=== PATIENT | female | born 1995 ===

== ENCOUNTER 2023-11-21 08:07 | Inpatient (IN) ==
[2023-11-21] MEDS ORDERED: LIDOCAINE 1% LOCAL 20 ML VIAL INFIL PRN (08:33)
[2023-11-21] MEDS ORDERED: CALCIUM CARBONATE 500 MG CHEWABLE TAB PO PRN (08:33)
[2023-11-21] MEDS ORDERED: OXYTOCIN 30 UNITS/NSS 30 UNITS/500 ML BAG IV PRN ×2 (08:33→21:05)
[2023-11-21] MEDS ORDERED: ACETAMINOPHEN 325 MG TAB PO PRN ×2 (08:33→21:05)
--- NOTE | 2023-11-21 08:37 | History & Physical Report ---
Date of Service November 21, 2023 Assessment & Plan (1) Encounter for induction of labor: Plan: 28yo at 40w4d Morris bulb: placed Pitocin started Pain control, IV fluids AROM when indicated Monitor tracing: category I (2) GBS bacteriuria: Plan: discovered by urine culture on 08/28/23 Treating with penicillin: 6mu IV given, then 3mu IV q4h Has not had any signs indicating infection Monitor for signs of infection (3) Genital herpes: Plan: has been treating with daily Valtrex Admission and Anticipated Discharge Date Admission Date: November 21, 2023 History of Present Illness Chief Complaint: induction of labor Primary Care Provider: NO PCP Patient is a 28yo at 40w4d admitted for IOL. GBS+ on 08/28/23 Vital signs stable, BP mildly elevated, has not been measured >140/90 for duration of . Has been treating HSV2 with Valtrex daily, no active lesions. Otherwise her current has been uneventful, no pre-eclampsia. Previous : 11mos ago, notes pre-eclampsia which included significant swelling. was induced at 39w3d, 30+ hrs of labor but otherwise uneventful. No significant past medical or surgical history. Denies any recent fever, body aches, chills, headache, dizziness, n/v/d, SOB, chest pain, abdominal pain, vaginal bleeding, numbness/tingling, or p ain/swelling of lower extremities. RH+ Allergies Allergy/AdvReac Type Severity Reaction Status Date / Time No Known Allergies Allergy Verified 11/20/23 10:22 Home Medications Medication Instructions Recorded Confirmed Type [id number] PO 05/31/23 11/20/23 History [ Plus] escitalopram oxalate 20 mg tablet 20 mg PO DAILY #30 tabs 06/16/23 11/21/23 Rx (Lexapro) valacyclovir [Valtrex] 500 mg PO BID 11/02/23 11/21/23 History aspirin 81 mg chewable tablet 81 mg PO DAILY 11/21/23 11/21/23 History Patient History Medical History (Updated 11/21/23 @ 08:57 by Natalio Torres DO) Depression Genital herpes Varicella vaccination Pre-eclampsia Surgical History No pertinent past surgical history Family History Grandmother (Paternal) Colorectal cancer Aunt Colorectal cancer Mother Myocardial infarction Denies family history of Ovarian cancer Breast cancer Social History (Updated 11/21/23 @ 08:31 by Dee Dee Alvarez RN) Smoking Status: Never smoker Do You Dip or Chew Tobacco: No; Hx Alcohol Use: No Hx Substance Use: No Preferred Language: Faroese Communication Ability: Effective Cabinet Worker Required: No Beliefs That Will Affect Care: None marital status: marital status details: Jp Alvarado (29) [phone] Current Living Situation: Spouse and Family Current Living Situation Comment: , 3 children, 2 dogs current occupational status: unemployed current occupation: Homemaker Other Information That Helps Us Care for You: No Feels Safe at Home: Yes Safety Concerns: Feels Safe At This Time Diet: regular Assistive Devices: None Review of Systems per HPI Physical Exam Physical Exam: General: A&Ox4, resting comfortably NAD, nontoxic in appearance, answers questions appropriately Skin: warm, dry, intact HEENT: NC/AT, anicteric sclerae, conjunctiva w/o injection, moist mucous membranes Heart: +S1/S2, regular rate and rhythm, no m/r/g Lungs: equal air entry b/l, clear to auscultation b/l, no wheezes/rales/rhonchi Abd: gravid, +BS, nontender to palpation Cervical: 1/50/-2, mid, moderate; estimated weight 8-9lbs Ext: mild swelling, no erythema or tenderness; warm, no clubbing or cyanosis, no pitting edema Neuro: speech intact, no facial droop, moves all extremities on command and spontaneously : FHR baseline 150, moderate variability, accelerations present, decelerations present Results & Data Vital Signs (Past 12 Hours) Vital Signs Temp Pulse Resp BP 11/21/23 09:41 76 20 133/87 11/21/23 08:44 82 132/83 11/21/23 08:33 36.8 C 20 Intake and Output 11/20/23 11/21/23 11/21/23 22:59 06:59 14:59 Other: Weight 95.254 kg Weight Measurement Method Last Office Visit Patient Weight 11/22/23 06:59 Weight 95.254 kg Supervising Physician Co-Signing Physician Notes Resident Physician Supervision Note: I interviewed and examined the patient. Discussed with Dr. Munoz and agree with findings and plan as documented in the note. Any exceptions or clarifications are listed here: with iup at 40 4/7 for postdates induction. essentially uncomplicated. cx exam as noted by me. Verbal consent for morris bulb for cervical ripening. speculum placed, morris threaded through with ring, balloon with 30cc sterile water, tolerated well. Pitocin now. arom when balloon expelled, epidural on demand/. Fetus category one. rare contraction. anticipate . Documented By: Ira Loyd MD, FACOG Resident Activity Tracking Resident Involvement: Resident Care Provided Care Provided: OB Delivery (3) Genital herpes Herpes simplex infection site: unspecified Qualified Code(s): A60.00 - Herp esviral infection of urogenital system, unspecified
[2023-11-21 09:06] LABS: Hematocrit (blood only) 33.1 % (37.0-47.0); Hemoglobin 10.5 g/dl (12.0-16.0); Mean Corpuscular Hemoglobin 24.4 pg (25.0-34.0); Mean Corpuscular Hgb Conc 31.7 g/dL (32.0-36.0); Mean Corpuscular Volume 76.8 fL (80.0-100.0); Mean Platelet Volume 10.2 fL (9.4-12.4); Platelet Count 249 K/uL (130-400); RDW Coefficient of Variation 18.2 % (11.5-14.5); RDW Standard Deviation 50.2 fL (36.4-46.3); Red Blood Count 4.31 M/uL (4.20-5.40); White Blood Count 8.99 K/ul (4.8-10.8)
[2023-11-21] MEDS: OXYTOCIN 30 UNITS/NSS 30 UNITS/500 ML BAG IV PRN (09:52)
[2023-11-21] MEDS: LACTATED RINGER'S 1,000 ML IV PRN (09:52)
[2023-11-21] MEDS: PENICILLIN GK 6 MU in DEXTROSE 5% 250 ML IV STA (10:20)
[2023-11-21] MEDS ORDERED: BUPIVACAINE 0.25% PF 30 ML VIAL EPI PRN (13:04)
[2023-11-21] MEDS ORDERED: NALOXONE HCL 0.4 MG/1 ML VIAL/CARP IV PRN (13:04)
[2023-11-21] MEDS ORDERED: ROPIVACAINE 0.5% PF 5 MG/ML 20 ML VIAL EPI PRN (13:04)
[2023-11-21] MEDS ORDERED: NALOXONE HCL 1 MG in SODIUM CHLORIDE 0.9% 1,000 ML IV PRN (13:04)
[2023-11-21] MEDS ORDERED: NALBUPHINE HCL INJ 10 MG/ML AMP IV PRN (13:04)
[2023-11-21] MEDS ORDERED: fentaNYL citrate PF 100 MCG/2 ML VIAL EPI PRN (13:04)
[2023-11-21] MEDS ORDERED: LIDOCAINE 2% MPF LOCAL 5 ML VIAL EPI PRN (13:04)
[2023-11-21] MEDS ORDERED: SODIUM CHLORIDE 0.9% PF INJ 10 ML VIAL EPI PRN (13:04)
[2023-11-21] MEDS ORDERED: ePHEDrine sulfate 50 MG/ML AMP IV PRN (13:04)
[2023-11-21] MEDS ORDERED: diphenhydrAMINE 50 MG/ML VIAL IV PRN (13:04)
--- NOTE | 2023-11-21 13:04 | Anesthesiology Consultation ---
Date of Service November 21, 2023 Assessment & Plan Chart Review Chart Review: Acceptable Risk for Labor Epidural Consults Requested none History Height/Weight Height: 5 ft 5 in Weight: 95.254 kg Allergies Allergy/AdvReac Type Severity Reaction Status Date / Time No Known Allergies Allergy Verified 11/20/23 10:22 Medications Home Medications Medication Instructions Recorded Confirmed Last Taken [id number] PO 05/31/23 11/20/23 11/20/23 [ Plus] escitalopram oxalate 20 mg tablet 20 mg PO DAILY #30 tabs 06/16/23 11/21/23 11/21/23 (Lexapro) valacyclovir [Valtrex] 500 mg PO BID 11/02/23 11/21/23 11/20/23 aspirin 81 mg chewable tablet 81 mg PO DAILY 11/21/23 11/21/23 11/20/23 Active Medications Generic Name Dose Route Start Last Admin Trade Name Freq PRN Reason Stop Dose Admin Oxytocin 30 units in 500 mls @ 5 mls/hr 11/21/23 08:33 11/21/23 11:59 Pitocin 30 Units/Nss IV 11/23/23 08:32 0.3 units/hr .Q24H PRN 5 mls/hr Labor Induction/Augmentation Titration Protocol 0.3 UNITS/HR Lactated Ringer's 1,000 mls @ 125 mls/hr 11/21/23 08:33 11/21/23 09:52 Lr IV 11/23/23 08:32 125 mls/hr .Q8H PRN Administration L&D Protocol Protocol Past Medical History Medical History (Updated 11/21/23 @ 08:57 by Natalio Torres DO) Depression Genital herpes Varicella vaccination Pre-eclampsia Past Family History Family History Grandmother (Paternal) Colorectal cancer Aunt Colorectal cancer Mother Myocardial infarction Denies family history of Ovarian cancer Breast cancer Past Surgical History Surgical History No pertinent past surgical history Social History Smoking Status: Never smoker Do You Dip or Chew Tobacco: No Hx Alcohol Use: No Hx Substance Use: No Physical Exam Vital Signs Last Vital Signs Temp 36.9 C 11/21/23 11:33 Pulse 78 11/21/23 12:34 Resp 20 11/21/23 11:33 BP 119/74 11/21/23 12:34 Testing Laboratory Results 11/21/23 08:36
[2023-11-21] MEDS: LIDOCAINE 2%/EPINEPHRINE 1:200,000 20 ML PF ONE (13:33)
[2023-11-21] MEDS: fentANYL 2 MCG/ML BUPIVacaine 0.125%-NSS 100ML BAG ONE (13:35)
[2023-11-21] MEDS: PENICILLIN GK 3 MU in DEXTROSE 5% 100 ML IV PRN (13:58)
--- NOTE | 2023-11-21 14:59 | Labor Progress Brief Note ---
Date of Service November 21, 2023 Subjective comfortable after epidural Assessment & Plan (1) Encounter for induction of labor: Plan Continue current management. fetus category one. Admission and Anticipated Discharge Date Admission Date: November 21, 2023 Physical Exam Physical Exam: cx--/-2 arom--thin mec, green toco--q2-3min efm--140s with mod varaibility, accels to 150s, no decels Results & Data Vital Signs (Past 12 Hours) Vital Signs Temp Pulse Resp BP Pulse Ox 11/21/23 14:53 84 98 11/21/23 14:48 89 98 11/21/23 14:43 93 H 99 11/21/23 14:42 81 127/73 11/21/23 14:38 84 98 11/21/23 14:33 78 98 11/21/23 14:28 77 97 11/21/23 14:27 80 20 114/59 L 11/21/23 14:23 79 98 11/21/23 14:18 80 98 11/21/23 14:13 82 98 11/21/23 14:11 83 117/59 L 11/21/23 14:08 81 98 11/21/23 14:03 85 98 11/21/23 13:58 83 98 11/21/23 13:55 89 119/70 11/21/23 13:53 84 98 11/21/23 13:51 86 126/71 11/21/23 13:48 85 99 11/21/23 13:45 82 110/59 L 11/21/23 13:43 87 113/59 L 99 11/21/23 13:41 93 H 18 116/63 11/21/23 13:39 90 113/62 11/21/23 13:38 89 99 11/21/23 13:37 86 115/58 L 11/21/23 13:35 89 18 123/58 L 11/21/23 13:33 99 11/21/23 13:33 90 11/21/23 13:33 90 116/56 L 11/21/23 13:31 87 130/60 11/21/23 13:29 95 H 136/76 11/21/23 13:28 95 H 100 11/21/23 13:27 86 133/81 11/21/23 12:34 78 20 119/74 11/21/23 11:34 77 122/75 11/21/23 11:33 36.9 C 20 11/21/23 09:41 76 20 133/87 11/21/23 08:44 82 132/83 11/21/23 08:33 36.8 C 20 Coding Level of Care Code None Diagnoses Encounter for induction of labor Z34.90
[2023-11-21] MEDS: ePHEDrine sulfate 50 MG/ML AMP ONE (15:29)
[2023-11-21] MEDS: SODIUM CHLORIDE 0.9% PF INJ 10 ML VIAL ONE (15:30)
[2023-11-21] MEDS: BUPIVACAINE 0.25% PF 30 ML VIAL EPI STA (15:30)
[2023-11-21] MEDS: fentaNYL citrate PF 100 MCG/2 ML VIAL ONE (15:30)
[2023-11-21] MEDS: BUPIVACAINE 0.25% PF 30 ML VIAL ONE (15:30)
[2023-11-21] MEDS: fentaNYL citrate PF 100 MCG/2 ML VIAL EPI STA (15:30)
[2023-11-21] MEDS: LIDOCAINE 2%/EPINEPHRINE 1:200,000 20 ML PF EPI STA (15:31)
[2023-11-21] MEDS: SODIUM CHLORIDE 0.9% PF INJ 10 ML VIAL EPI STA (15:31)
--- NOTE | 2023-11-21 19:29 | Labor Progress Brief Note ---
Date of Service November 21, 2023 Subjective comfortable Assessment & Plan (1) Encounter for induction of labor: Plan continue current plan, reassuring fetus. Admission and Anticipated Discharge Date Admission Date: November 21, 2023 Physical Exam Physical Exam: cx--5-6/100/0 toco--q2-3min, pit at 11 efm--130s wtih mod variability, early/variables with some contractions. Results & Data Vital Signs (Past 12 Hours) Vital Signs Temp Pulse Resp BP Pulse Ox 11/21/23 19:26 90 128/60 11/21/23 19:23 81 97 11/21/23 19:18 81 97 11/21/23 19:13 83 98 11/21/23 19:11 90 114/57 L 11/21/23 19:08 90 98 11/21/23 19:03 92 H 98 11/21/23 18:58 91 H 97 11/21/23 18:57 86 116/57 L 11/21/23 18:53 84 97 11/21/23 18:48 87 97 11/21/23 18:43 95 H 98 11/21/23 18:42 84 105/58 L 11/21/23 18:38 91 H 97 11/21/23 18:33 92 H 98 11/21/23 18:28 80 99 11/21/23 18:27 80 109/60 11/21/23 18:23 77 97 11/21/23 18:18 78 111/57 L 98 11/21/23 18:13 90 99 11/21/23 18:12 77 119/64 11/21/23 18:08 92 H 98 11/21/23 18:03 75 99 11/21/23 17:58 95 H 99 11/21/23 17:56 72 20 113/67 11/21/23 17:53 73 99 11/21/23 17:48 77 99 11/21/23 17:43 77 100 11/21/23 17:42 95 H 127/70 11/21/23 17:38 84 100 11/21/23 17:33 80 99 11/21/23 17:28 77 99 11/21/23 17:26 71 118/72 11/21/23 17:23 78 99 11/21/23 17:18 81 99 11/21/23 17:13 81 99 11/21/23 17:12 36.9 C 67 20 119/73 11/21/23 17:08 73 99 11/21/23 17:03 86 98 11/21/23 16:58 88 99 11/21/23 16:57 77 126/78 11/21/23 16:53 81 98 11/21/23 16:48 78 98 11/21/23 16:43 88 99 11/21/23 16:41 77 118/68 11/21/23 16:38 81 98 11/21/23 16:33 83 98 11/21/23 16:28 76 98 11/21/23 16:27 77 117/72 11/21/23 16:23 78 98 11/21/23 16:18 80 98 11/21/23 16:13 82 98 11/21/23 16:12 96 H 142/105 H 11/21/23 16:08 83 97 11/21/23 16:03 77 96 11/21/23 15:58 75 97 11/21/23 15:57 75 20 125/66 11/21/23 15:53 78 97 11/21/23 15:48 76 96 11/21/23 15:43 78 96 11/21/23 15:41 75 128/72 11/21/23 15:38 81 98 11/21/23 15:33 83 98 11/21/23 15:28 79 97 11/21/23 15:26 78 20 132/78 11/21/23 15:23 77 97 11/21/23 15:18 79 98 11/21/23 15:13 82 97 11/21/23 15:12 78 125/71 11/21/23 15:08 77 97 11/21/23 15:03 83 97 11/21/23 14:58 80 98 11/21/23 14:57 85 135/72 11/21/23 14:53 84 98 11/21/23 14:48 89 98 11/21/23 14:43 93 H 99 11/21/23 14:42 81 127/73 11/21/23 14:38 84 98 11/21/23 14:33 78 98 11/21/23 14:28 77 97 11/21/23 14:27 80 20 114/59 L 11/21/23 14:23 79 98 11/21/23 14:18 80 98 11/21/23 14:13 82 98 11/21/23 14:11 83 117/59 L 11/21/23 14:08 81 98 11/21/23 14:03 85 98 11/21/23 13:58 83 98 11/21/23 13:55 89 119/70 11/21/23 13:53 84 98 11/21/23 13:51 86 126/71 11/21/23 13:48 85 99 11/21/23 13:45 82 110/59 L 11/21/23 13:43 87 113/59 L 99 11/21/23 13:41 93 H 18 116/63 11/21/23 13:39 90 113/62 11/21/23 13:38 89 99 11/21/23 13:37 86 115/58 L 11/21/23 13:35 89 18 123/58 L 11/21/23 13:33 99 11/21/23 13:33 90 11/21/23 13:33 90 116/56 L 11/21/23 13:31 87 130/60 11/21/23 13:29 95 H 136/76 11/21/23 13:28 95 H 100 11/21/23 13:27 86 133/81 11/21/23 12:34 78 20 119/74 11/21/23 11:34 77 122/75 11/21/23 11:33 36.9 C 20 11/21/23 09:41 76 20 133/87 11/21/23 08:44 82 132/83 11/21/23 08:33 36.8 C 20 Coding Level of Care Code None Diagnoses Encounter for induction of labor Z34.90
[2023-11-21] MEDS: fentANYL 2 MCG/ML BUPIVacaine 0.125%-NSS 100ML BAG EPI PRN (20:01)
--- NOTE | 2023-11-21 20:52 | Delivery Summary ---
Vaginal Delivery Summary Date of Service November 21, 2023 Vaginal Delivery Summary and 1st Degree LAC (periclitoral, not perineum) Pre-operative Diagnosis: at 40 4/7 weeks iol Post-operative Diagnosis: same thin meconium Procedure: morris bulb for cervical ripening pitocin induction epidural arom periclitoral lac and repair EBL: 505cc Anesthesia: epidural Procedure: The patient presented to labor and delivery for postdates iol. Cervix not favorable and morris bulb placed. Pitocin started. She then underwent an epidural. Once comfortable, had arom for thin, green mec. Progressed with pitocin to c/c/+2. The patient pushed for 2 contractions to deliver a viable female in nash position. A loose nuchal cord x 1 reduced and the anterior shoulder then delivered. the rest of the baby followed easily. The nose and mouth were bulb suctioned and the infant was placed in the maternal abdomen for drying and attention. Cord was clamped and cut. Cord blood and segment obtained. Placenta delivered spontaneous, intact with a three vessel cord. Cervix/sulci/rectum were intact. A periclitoral laceration was repaired in the normal standard fashion. Hemostasis obtained with dilute pitocin and fundal massage. Apgars were 7/8. Mother and baby doing well at the end of the delivery. [facility] Vaginal Delivery Charge Delivery Type Details: and 1st Degree LAC (periclitoral, not perineum)
[2023-11-21] MEDS ORDERED: bisacodyL 10 MG SUPP PR PRN (21:05)
[2023-11-21] MEDS ORDERED: HYDROCORTISONE ACETATE 25 MG SUPP PR PRN (21:05)
[2023-11-21] MEDS ORDERED: oxyCODONE/ACETAMINOPHEN 5mg/325mg TAB PO PRN (21:05)
[2023-11-21] MEDS: METHYLERGONOVINE MALEATE 0.2 MG/ML AMP IM ONE (21:30)
[2023-11-21] MEDS: DIPHTHER/TETAN/PERTUS Vaccine (Tdap, Adol/Adult) 0.5mL IM ONE (21:31)
[2023-11-21] MEDS: DOCUSATE SODIUM 100 MG CAP PO SCH (21:32)
--- NOTE | 2023-11-21 22:52 | Anesthesiology Progress Note ---
Date of Service November 21, 2023 Anesthesia Post Procedure Vital Signs Vital Signs: Temp Pulse Resp BP Pulse Ox 11/21/23 22:10 36.5 C 18 11/21/23 21:56 68 127/84 11/21/23 21:41 78 126/86 11/21/23 21:40 36.5 C 18 11/21/23 21:26 72 132/87 11/21/23 21:25 36.5 C 18 11/21/23 21:23 74 99 11/21/23 21:18 75 99 11/21/23 21:13 72 97 11/21/23 21:11 73 120/82 11/21/23 21:10 36.5 C 18 11/21/23 21:08 72 99 11/21/23 21:03 80 99 11/21/23 20:58 78 99 11/21/23 20:56 76 119/73 11/21/23 20:55 36.5 C 18 11/21/23 20:53 74 99 11/21/23 20:48 82 99 11/21/23 20:43 84 99 11/21/23 20:41 113/62 11/21/23 20:40 36.5 C 18 11/21/23 20:38 86 98 11/21/23 20:37 86 119/62 11/21/23 20:33 88 98 11/21/23 20:28 85 99 11/21/23 20:26 107/72 11/21/23 20:25 106 H 86 L 11/21/23 20:23 96 H 100 11/21/23 20:18 91 H 99 11/21/23 20:13 91 H 99 11/21/23 20:11 77 116/59 L 11/21/23 20:08 70 99 11/21/23 20:03 78 99 11/21/23 19:58 72 99 11/21/23 19:56 75 116/58 L 11/21/23 19:53 84 98 11/21/23 19:48 79 97 11/21/23 19:43 80 98 11/21/23 19:41 78 134/66 11/21/23 19:38 82 98 11/21/23 19:33 85 97 11/21/23 19:28 83 98 11/21/23 19:26 90 128/60 11/21/23 19:23 81 97 11/21/23 19:18 81 97 11/21/23 19:13 83 98 11/21/23 19:11 90 114/57 L 11/21/23 19:10 36.6 C 16 11/21/23 19:08 90 98 11/21/23 19:03 92 H 98 11/21/23 18:58 91 H 97 11/21/23 18:57 86 116/57 L 11/21/23 18:53 84 97 11/21/23 18:48 87 97 11/21/23 18:43 95 H 98 11/21/23 18:42 84 105/58 L 11/21/23 18:38 91 H 97 11/21/23 18:33 92 H 98 11/21/23 18:28 80 99 11/21/23 18:27 80 109/60 11/21/23 18:23 77 97 11/21/23 18:18 78 111/57 L 98 11/21/23 18:13 90 99 11/21/23 18:12 77 119/64 11/21/23 18:08 92 H 98 11/21/23 18:03 75 99 11/21/23 17:58 95 H 99 11/21/23 17:56 72 20 113/67 11/21/23 17:53 73 99 11/21/23 17:48 77 99 11/21/23 17:43 77 100 11/21/23 17:42 95 H 127/70 11/21/23 17:38 84 100 11/21/23 17:33 80 99 11/21/23 17:28 77 99 11/21/23 17:26 71 118/72 11/21/23 17:23 78 99 11/21/23 17:18 81 99 11/21/23 17:13 81 99 11/21/23 17:12 36.9 C 67 20 119/73 11/21/23 17:08 73 99 11/21/23 17:03 86 98 11/21/23 16:58 88 99 11/21/23 16:57 77 126/78 11/21/23 16:53 81 98 11/21/23 16:48 78 98 11/21/23 16:43 88 99 11/21/23 16:41 77 118/68 11/21/23 16:38 81 98 11/21/23 16:33 83 98 11/21/23 16:28 76 98 11/21/23 16:27 77 117/72 11/21/23 16:23 78 98 11/21/23 16:18 80 98 11/21/23 16:13 82 98 11/21/23 16:12 96 H 142/105 H 11/21/23 16:08 83 97 11/21/23 16:03 77 96 11/21/23 15:58 75 97 11/21/23 15:57 75 20 125/66 11/21/23 15:53 78 97 11/21/23 15:48 76 96 11/21/23 15:43 78 96 11/21/23 15:41 75 128/72 11/21/23 15:38 81 98 11/21/23 15:33 83 98 11/21/23 15:28 79 97 11/21/23 15:26 78 20 132/78 11/21/23 15:23 77 97 11/21/23 15:18 79 98 11/21/23 15:13 82 97 11/21/23 15:12 78 125/71 11/21/23 15:08 77 97 11/21/23 15:03 83 97 11/21/23 14:58 80 98 11/21/23 14:57 85 135/72 11/21/23 14:53 84 98 11/21/23 14:48 89 98 11/21/23 14:43 93 H 99 11/21/23 14:42 81 127/73 11/21/23 14:38 84 98 11/21/23 14:33 78 98 11/21/23 14:28 77 97 11/21/23 14:27 80 20 114/59 L 11/21/23 14:23 79 98 11/21/23 14:18 80 98 11/21/23 14:13 82 98 11/21/23 14:11 83 117/59 L 11/21/23 14:08 81 98 11/21/23 14:03 85 98 11/21/23 13:58 83 98 11/21/23 13:55 89 119/70 11/21/23 13:53 84 98 11/21/23 13:51 86 126/71 11/21/23 13:48 85 99 11/21/23 13:45 82 110/59 L 11/21/23 13:43 87 113/59 L 99 11/21/23 13:41 93 H 18 116/63 11/21/23 13:39 90 113/62 11/21/23 13:38 89 99 11/21/23 13:37 86 115/58 L 11/21/23 13:35 89 18 123/58 L 11/21/23 13:33 99 11/21/23 13:33 90 11/21/23 13:33 90 116/56 L 11/21/23 13:31 87 130/60 11/21/23 13:29 95 H 136/76 11/21/23 13:28 95 H 100 11/21/23 13:27 86 133/81 11/21/23 12:34 78 20 119/74 11/21/23 11:34 77 122/75 11/21/23 11:33 36.9 C 20 11/21/23 09:41 76 20 133/87 11/21/23 08:44 82 132/83 11/21/23 08:33 36.8 C 20 Pain Intensity Pelvic: Pain Intensity: 6 Notes Mental Status: alert / awake / arousable Patient Amnestic to Procedure: Yes Nausea / Vomiting: adequately controlled Pain: adequately controlled Airway Patency, RR, SpO2: stable & adequate BP & HR: stable & adequate Hydration State: stable & adequate Neuraxial Anesthesia: was administered and sensory block is resolving Anesthetic Complications: no major complications apparent
[2023-11-21] MEDS: BENZOCAINE 20% SPRY 85 APPLN/85 GM CAN EXT PRN (23:18)
--- NOTE | 2023-11-22 06:32 | Obstetrical Progress Note ---
Date of Service <Natalio Torres DO - Last Filed: 11/22/23 07:32> November 22, 2023 Assessment & Plan <Natalio Torres DO - Last Filed: 11/22/23 07:32> (1) state: 28yo day 1 following Feels well today, VSS Continue care Ambulation as tolerated Bottle feeding baby Pain control with ibuprofen Hgb stable Wants to go home today: follow up with Dr. Loyd in 6wks, sooner if complications (2) Laceration of vulva: 1st degree periclitoral laceration during repaired following healing well watch for continued healing and signs of infection Encounter type: initial encounter Qualified Code(s): S31.41XA - Laceration without foreign body of vagina and vulva, initial encounter (3) GBS bacteriuria: discovered by urine culture on 08/28/23 Treated with penicillin: 6mu IV given, followed by 3mu IV q4h Has not had any signs indicating infection Monitor for signs of infection (4) Genital herpes: has been treating with daily Valtrex Herpes simplex infection site: unspecified Qualified Code(s): A60.00 - Herpesviral infection of urogenital system, unspecified <Ira Loyd MD, FACOG - Last Filed: 11/22/23 07:45> (1) state: (2) Laceration of vulva: (3) GBS bacteriuria: (4) Genital herpes: Subjective <Natalio Torres DO - Last Filed: 11/22/23 07:32> Patient is a 28yo day 1 following . was complicated by loose nuchal cord which was reduced prior to anterior shoulder delivery, as well as 1st-degree periclitoral laceration, which was repaired. Patient endorses she is feeling well this morning. Ambulation: yes Voiding: has urinated, no bm yet Passing gas: yes Diet tolerance: tolerating regular Lochia: small Feeding type: bottle Current pain: minimal Resting comfortably this AM in NAD. Denies fever, body aches, chills, headache, SOB, n/v/d, abdominal pain, or LE pain/swelling. Review of Systems as above Physical Exam <Natalio Torres DO - Last Filed: 11/22/23 07:32> General: A&Ox4, resting comfortably NAD, nontoxic in appearance, answers questions appropriately Skin: warm, dry, intact HEENT: NC/AT, anicteric sclerae, conjunctiva w/o injection, moist mucous membranes Heart: +S1/S2, regular rate and rhythm, no m/r/g Lungs: equal air entry b/l, clear to auscultation b/l, no wheezes/rales/rhonchi Abd: +BS, uterus firm around level of umbilicus, nontender to palpation Ext: mild swelling, no erythema or tenderness; warm, no clubbing or cyanosis, no pitting edema Neuro: speech intact, no facial droop, moves all extremities on command and spontaneously Results & Data <Natalio Torres DO - Last Filed: 11/22/23 07:32> Vital Signs (Past 12 Hours) Vital Signs Temp Pulse Pulse Resp BP BP Pulse Ox 11/22/23 03:15 36.6 C 71 18 128/84 11/22/23 00:04 36.7 C 83 16 127/79 11/21/23 22:51 92 H 123/71 11/21/23 22:40 36.6 C 18 11/21/23 22:10 36.5 C 18 11/21/23 21:56 68 127/84 11/21/23 21:41 78 126/86 11/21/23 21:40 36.5 C 18 11/21/23 21:26 72 132/87 11/21/23 21:25 36.5 C 18 11/21/23 21:23 74 99 11/21/23 21:18 75 99 11/21/23 21:13 72 97 11/21/23 21:11 73 120/82 11/21/23 21:10 36.5 C 18 11/21/23 21:08 72 99 11/21/23 21:03 80 99 11/21/23 20:58 78 99 11/21/23 20:56 76 119/73 11/21/23 20:55 36.5 C 18 11/21/23 20:53 74 99 11/21/23 20:48 82 99 11/21/23 20:43 84 99 11/21/23 20:41 113/62 11/21/23 20:40 36.5 C 18 11/21/23 20:38 86 98 11/21/23 20:37 86 119/62 11/21/23 20:33 88 98 11/21/23 20:28 85 99 11/21/23 20:26 107/72 11/21/23 20:25 106 H 86 L 11/21/23 20:23 96 H 100 11/21/23 20:18 91 H 99 11/21/23 20:13 91 H 99 11/21/23 20:11 77 116/59 L 11/21/23 20:08 70 99 11/21/23 20:03 78 99 11/21/23 19:58 72 99 11/21/23 19:56 75 116/58 L 11/21/23 19:53 84 98 11/21/23 19:48 79 97 11/21/23 19:43 80 98 11/21/23 19:41 78 134/66 11/21/23 19:38 82 98 11/21/23 19:33 85 97 11/21/23 19:28 83 98 11/21/23 19:26 90 128/60 11/21/23 19:23 81 97 11/21/23 19:18 81 97 11/21/23 19:13 83 98 11/21/23 19:11 90 114/57 L 11/21/23 19:10 36.6 C 16 11/21/23 19:08 90 98 11/21/23 19:03 92 H 98 11/21/23 18:58 91 H 97 11/21/23 18:57 86 116/57 L 11/21/23 18:53 84 97 11/21/23 18:48 87 97 11/21/23 18:43 95 H 98 11/21/23 18:42 84 105/58 L 11/21/23 18:38 91 H 97 11/21/23 18:33 92 H 98 11/21/23 18:28 80 99 11/21/23 18:27 80 109/60 11/21/23 18:23 77 97 O2 Del Method 11/22/23 03:15 Room Air 11/22/23 00:04 Room Air 11/21/23 22:51 11/21/23 22:40 11/21/23 22:10 11/21/23 21:56 11/21/23 21:41 10/15/24 21:40 11/21/23 21:26 11/21/23 21:25 11/21/23 21:23 11/21/23 21:18 11/21/23 21:13 11/21/23 21:11 11/21/23 21:10 11/21/23 21:08 11/21/23 21:03 11/21/23 20:58 11/21/23 20:56 11/21/23 20:55 11/21/23 20:53 11/21/23 20:48 11/21/23 20:43 11/21/23 20:41 11/21/23 20:40 11/21/23 20:38 11/21/23 20:37 11/21/23 20:33 11/21/23 20:28 11/21/23 20:26 11/21/23 20:25 11/21/23 20:23 11/21/23 20:18 11/21/23 20:13 11/21/23 20:11 11/21/23 20:08 11/21/23 20:03 11/21/23 19:58 11/21/23 19:56 11/21/23 19:53 11/21/23 19:48 11/21/23 19:43 11/21/23 19:41 11/21/23 19:38 11/21/23 19:33 11/21/23 19:28 11/21/23 19:26 11/21/23 19:23 11/21/23 19:18 11/21/23 19:13 11/21/23 19:11 11/21/23 19:10 11/21/23 19:08 11/21/23 19:03 11/21/23 18:58 11/21/23 18:57 11/21/23 18:53 11/21/23 18:48 11/21/23 18:43 11/21/23 18:42 11/21/23 18:38 11/21/23 18:33 11/21/23 18:28 11/21/23 18:27 11/21/23 18:23 Supervising Physician <Ira Loyd MD, FACOG - Last Filed: 11/22/23 07:45> Co-Signing Physician Notes Resident Physician Supervision Note: I interviewed and examined the patient. Discussed with Dr. Munoz and agree with findings and plan as documented in the note. Any exceptions or clarifications are listed here: Doing well. Meeting goals. Desires d/c at 24 hours. Can do so if baby d/c. Instructions given. Documented By: Ira Loyd MD, FACOG Resident Activity Tracking <Natalio Torres, DO - Last Filed: 11/22/23 07:32> Resident Involvement: Resident Care Provided Care Provided: OB Delivery
[2023-11-22 07:09] LABS: Hematocrit (blood only) 31.9 % (37.0-47.0); Hemoglobin 10.3 g/dl (12.0-16.0)
[2023-11-22] MEDS: METHYLERGONOVINE MALEATE 0.2 MG/ML AMP ONE (07:17)
[2023-11-22] MEDS: PRENATAL VITAMIN 1 TAB PO SCH (07:45)
[2023-11-22] MEDS: IBUPROFEN 600 MG TAB PO PRN (07:45)
[2023-11-22] MEDS: ESCITALOPRAM OXALATE 20 MG TAB PO SCH (09:28)
[2023-11-22 11:25] VITALS: O2SAT 99
[2023-11-22 19:23] VITALS: BP 121/70; PULSE 73; RESP 14; TEMP 97.7
[2023-11-22] MEDS: bisacodyL 5 MG TABEC PO SCH (21:20)
== END 2023-11-22 21:45 | disposition home or self-care (01) | DRG 768 ==
LOC: 4S1 08:09 → 4E2 23:58